=== PATIENT | female | born 1950 | race Caucasian/White ===

== ENCOUNTER → 2020-06-04 | Outpatient (CLI) | payer MEDICARE ==
--- NOTE | 2020-06-04 17:30 | BD ---
EXAMINATION TYPE: Axial Bone Density DATE OF EXAM: 06/04/2020 COMPARISON: NONE CLINICAL HISTORY: Height: 63 IN Weight: 149 LBS RISK FACTORS HISTORY OF: Surgery to Spine: YES L- SPINE SURGERY 2016 Active: YES Postmenopausal woman: AGE 46 MEDICATIONS: Osteoporosis Medications: NOT NOW Which medication: Fosamax How Long: TOOK FOR 2 YEARS. STOPPED 15+ YEARS AGO Additional Medications: CALCIUM, VIT D, CRESTOR, EXAM MEASUREMENTS: L-SPINE SURGERY 2016 Bone mineral density about the R hip (g/cm2): 0.890 Bone mineral density about the L hip (g/cm2): 0.884 T Score values are as follows: -----R Neck: -1.1 -----L Neck: -1.1 -----R Total: 0.4 -----L Total: 0.5 Bone mineral density BASELINE Bone mineral density about the L Wrist (g/cm2): 0.614 T Score values are as follows: -----Dist. R+U: -1.4 -----Prox. R+U: -0.6 -----Radius total: -1.0 Bone mineral density BASELINE IMPRESSION: Osteopenia (T Score between -2.5 and -1). There is slightly increased risk of fracture and the patient may be considered for treatment. Re-Screen 2-5 years. NOTE: T-SCORE=SD OF THE YOUNG ADULT MEAN.
--- NOTE | 2020-06-05 09:54 | MM ---
Reason for exam: screening (asymptomatic). Last mammogram was performed 1 year and 11 months ago. History: Patient is postmenopausal. Benign excisional biopsy of the right breast, July 21, 1999. Benign ultrasound-guided cyst aspiration, July 11, 1999. Physical Findings: A clinical breast exam by your physician is recommended on an annual basis and results should be correlated with mammographic findings. MG 3D Screening Mammo W/Cad Bilateral CC and MLO view(s) were taken. Prior study comparison: July 11, 2018, mammogram, performed at [place]. Focal asymmetry far posterior right breast centrally. This finding is changed when compared with previous exams. ASSESSMENT: Incomplete: need additional imaging evaluation, BI-RAD 0 RECOMMENDATION: Special view mammogram of the right breast. If lesion persists on supplemental views, image directed ultrasound is recommended. [facility] will attempt to contact patient to return for supplemental views and ultrasound if indicated.
== END | disposition home or self-care (01) ==
LOC: RADMAMWWP 07:40
PROVIDERS: ATTEND Internal Medicine Geriatric Medicine
DX: Z12.31 Encounter for screening mammogram for malignant neoplasm of breast (principal); M85.80 Other specified disorders of bone density and structure, unspecified site; M81.0 Age-related osteoporosis without current pathological fracture
CPT/HCPCS: 77063; 77067; 77080

== ENCOUNTER → 2020-06-10 | Outpatient (CLI) | payer MEDICARE ==
--- NOTE | 2020-06-10 09:32 | MM ---
Reason for exam: additional evaluation requested from abnormal screening. Last mammogram was performed less than 1 month ago. History: Patient is postmenopausal. Benign excisional biopsy of the right breast, July 21, 1999. Benign ultrasound-guided cyst aspiration, July 11, 1999. Physical Findings: Nurse did not find any significant physical abnormalities on exam. MG 3D Work Up W/Cad RT Spot compression CC, spot compression MLO, and LM view(s) were taken of the right breast. Prior study comparison: June 04, 2020, bilateral MG 3d screening mammo w/cad. July 11, 2018, mammogram, performed at [place]. The breast tissue is heterogeneously dense. This may lower the sensitivity of mammography. No persistent distortion. No significant new findings when compared with previous films. These results were verbally communicated with the patient and result sheet given to the patient on 06/10/20. ASSESSMENT: Probably benign, BI-RAD 3 RECOMMENDATION: Follow-up diagnostic mammogram of the right breast in 6 months.
== END | disposition home or self-care (01) ==
LOC: RADMAMWWP 08:03
PROVIDERS: ATTEND Internal Medicine Geriatric Medicine
DX: R92.8 Other abnormal and inconclusive findings on diagnostic imaging of breast (principal)
CPT/HCPCS: 77065; G0279; 77061

== ENCOUNTER → 2020-12-17 | Outpatient (CLI) | payer MEDICARE ==
--- NOTE | 2020-12-17 12:14 | MM ---
Reason for exam: screening (asymptomatic). Last mammogram was performed 6 months ago. History: Patient is postmenopausal. Benign excisional biopsy of the right breast, July 21, 1999. Benign ultrasound-guided cyst aspiration, July 11, 1999. Physical Findings: A clinical breast exam by your physician is recommended on an annual basis and results should be correlated with mammographic findings. MG 3D Diag Mammo W/Cad RT CC and MLO view(s) were taken of the right breast. Prior study comparison: June 10, 2020, right breast MG 3d work up w/cad RT. June 04, 2020, bilateral MG 3d screening mammo w/cad. The breast tissue is heterogeneously dense. This may lower the sensitivity of mammography. No significant new findings when compared with previous films. These results were verbally communicated with the patient and result sheet given to the patient on 12/17/20. ASSESSMENT: Benign, BI-RAD 2 RECOMMENDATION: Return to routine screening mammogram schedule for both breasts.
== END | disposition home or self-care (01) ==
LOC: RADMAMWWP 08:19
PROVIDERS: ATTEND Internal Medicine Geriatric Medicine
DX: R92.2 Inconclusive mammogram (principal)
CPT/HCPCS: 77065; G0279; 77061

== ENCOUNTER → 2021-06-26 | Outpatient (CLI) | payer MEDICARE ==
--- NOTE | 2021-06-27 11:20 | MM ---
Reason for exam: screening (asymptomatic). Last mammogram was performed 6 months ago. History: Patient is postmenopausal. Benign excisional biopsy of the right breast, July 21, 1999. Benign ultrasound-guided cyst aspiration, July 11, 1999. Took hormonal contraceptives for 2 years. Physical Findings: A clinical breast exam by your physician is recommended on an annual basis and results should be correlated with mammographic findings. MG 3D Screening Mammo W/Cad Bilateral CC and MLO view(s) were taken. Prior study comparison: June 04, 2020, bilateral MG 3d screening mammo w/cad. July 11, 2018, mammogram, performed at [place]. The breast tissue is heterogeneously dense. This may lower the sensitivity of mammography. There are benign appearing round calcifications bilaterally. There is no discrete abnormality. ASSESSMENT: Benign, BI-RAD 2 RECOMMENDATION: Routine screening mammogram of both breasts in 1 year.
== END | disposition home or self-care (01) ==
LOC: RADMAMWWP 11:35
PROVIDERS: ATTEND Internal Medicine Geriatric Medicine
DX: Z12.31 Encounter for screening mammogram for malignant neoplasm of breast (principal); Z78.0 Asymptomatic menopausal state
CPT/HCPCS: 77063; 77067

== ENCOUNTER → 2022-06-29 | Outpatient (CLI) | payer MEDICARE ==
--- NOTE | 2022-06-29 17:26 | MM ---
Reason for Exam: Screening (asymptomatic). Last screening mammogram was performed 12 month(s) ago. Patient History: Menarche at age 13. First Full-Term at age 28. Postmenopausal. Patient has history of breast feeding. Patient used Hormonal Contraceptives for 2 years. 07/21/1999, Benign Excisional Biopsy on the right side. Benign Ultrasound-Guided Cyst Aspiration. Risk Values: Elisabeth 5 year model risk: 2.3%. NCI Lifetime model risk: 6.3%. Prior Study Comparison: 06/10/2020 Right Diagnostic Mammogram, [facility]. 12/17/2020 Right Diagnostic Mammogram, [facility]. 06/26/2021 Bilateral Screening Mammogram, [facility]. Tissue Density: The breast tissue is heterogeneously dense. This may lower the sensitivity of mammography. Findings: Analyzed By CAD. There is no suspicious group of microcalcifications or new suspicious mass in either breast. Overall Assessment: Benign, BI-RAD 2 Management: Screening Mammogram of both breasts in 1 year. A clinical breast exam by your physician is recommended on an annual basis and results should be correlated with mammographic findings. Electronically signed and approved by: Aidan Mo M.D. Radiologis
== END ==
LOC: RADMAMWWP 07:29
PROVIDERS: ATTEND Internal Medicine Geriatric Medicine
DX: Z12.31 Encounter for screening mammogram for malignant neoplasm of breast (principal)
CPT/HCPCS: 77063; 77067

== ENCOUNTER 2023-01-05 02:28 | Emergency (ER) | payer MEDICARE ==
[2023-01-05 02:34] VITALS: RESP 18
[2023-01-05] MEDS ORDERED: PHENAZOPYRIDINE 100 MG TAB PO STA (02:47)
[2023-01-05 03:24] LABS: RBC,Urine >182 /hpf (0-5); WBC,Urine >182 /hpf (0-5)
[2023-01-05 03:26] LABS: Appearance,Urine Bloody (Clear); Color,Urine Dark Red
[2023-01-05] MEDS ORDERED: SULFAMETHOX-TMP 800-160MG 1 EACH TAB PO STA (04:02)
--- NOTE | 2023-01-05 04:04 | ED ---
Female Urogenital HPI - General Chief complaint: Urogenital Stated complaint: UTI, Hematuria Time Seen by Provider: 01/05/23 02:38 Source: patient, family Mode of arrival: ambulatory Limitations: no limitations - History of Present Illness Initial comments: This patient is a 72-year-old woman who presents with complaint of having urinary symptoms beginning tonight. The patient states that she initially was having symptoms of having to go frequently, burning dysuria, and urgency. Just prior to coming in she noticed that she was having hematuria as well. No systemic symptoms, no fever or chills, no chest pain, palpitations, dyspnea, diaphoresis or other symptoms. No back pain or abdominal pain. No rash MD Complaint: dysuria -: hour(s) Location: perineum Radiation: non-radiating Severity: moderate Quality: burning Consistency: intermittent Improves with: none Worsens with: urination - Related Data Previous Rx's Medication Instructions Recorded Phenazopyridine [Pyridium] 100 mg PO TID #6 tablet 01/05/23 Sulfamethox-Tmp 800-160Mg [Bactrim 1 each PO Q12HR #6 tab 01/05/23 Ds] Allergies Allergy/AdvReac Type Severity Reaction Status Date / Time tetracycline Allergy Rash/Hives Verified 01/05/23 02:35 Review of Systems ROS Statement: Those systems with pertinent positive or pertinent negative responses have been documented in the HPI. ROS Other: All systems not noted in ROS Statement are negative. Constitutional: Denies: fever, chills, weakness Respiratory: Denies: dyspnea Cardiovascular: Denies: chest pain, palpitations, edema Gastrointestinal: Denies: abdominal pain, vomiting Genitourinary: Reports: urgency, dysuria, frequency, hematuria Musculoskeletal: Denies: back pain Skin: Denies: rash Neurological: Denies: headache Hematological/Lymphatic: Denies: easy bleeding Past Medical History Past Medical History: Hyperlipidemia Additional Past Medical History / Comment(s): Menlisa Leease History of Any Multi-Drug Resistant Organisms: None Reported Past Surgical History: Orthopedic Surgery Past Psychological History: No Psychological Hx Reported Smoking Status: Never smoker Past Alcohol Use History: Occasional Past Drug Use History: None Reported General Exam Limitations: no limitations General appearance: alert, in no apparent distress Head exam: Present: atraumatic, normocephalic Eye exam: Present: normal appearance Neck exam: Present: normal inspection Respiratory exam: Present: normal lung sounds bilaterally. Absent: respiratory distress, wheezes, rales, rhonchi, stridor Cardiovascular Exam: Present: regular rate, normal rhythm, normal heart sounds. Absent: systolic murmur, diastolic murmur, rubs, gallop GI/Abdominal exam: Present: soft. Absent: distended, tenderness, guarding, rebound, rigid, mass Extremities exam: Present: normal inspection. Absent: pedal edema, calf tenderness Back exam: Absent: CVA tenderness (R), CVA tenderness (L) Neurological exam: Present: alert Skin exam: Present: warm, dry, intact, normal color. Absent: rash Course Vital Signs 01/05/23 01/05/23 02:29 04:19 Temperature 97.7 F 98.2 F Pulse Rate 74 75 Respiratory 18 18 Rate Blood Pressure 149/76 123/64 O2 Sat by Pulse 99 99 Oximetry Medical Decision Making - Medical Decision Making Patient is a 72-year-old woman with acute onset of urinary tract infection symptoms as well as hematuria. The patient does feel marked improvement after Pyridium. We discussed appropriate further care and follow-up, she is started on antibiotic as well. We discussed return parameters. Was pt. sent in by a medical professional or institution (, PA, DIRECTOR RECREATION, urgent care, hospital, or assisted...) When possible be specific @ -[No] Did you speak to anyone other than the patient for history (EMS, parent, family, police, friend...)? What history was obtained from this source @ -[No] Did you review nursing and triage notes (agree or disagree)? Why? @ -[I reviewed and agree with nursing and triage notes] Were old charts reviewed (outside hosp., previous admission, EMS record, old EKG, old radiological studies, urgent care reports/EKG's, assisted records)? Report findings @ -[No old charts were reviewed] Differential Diagnosis (chest pain, altered mental status, abdominal pain women, abdominal pain men, vaginal bleeding, weakness, fever, dyspnea, syncope, headache, dizziness, GI bleed, back pain, seizure, CVA, palpatations, mental health, musculoskeletal)? @ -[Differential Abdominal Pain Women: Appendicitis, Cholecystitis, diverticulosis, ischemic bowel, pancreatitis, hepatitis, UTI, gastroenteritis, AAA, incarcerated hernia, bowel obstruction, constipation, inflammatory bowel, hepatitis, peptic ulcer disease, splenic infarction, perforated viscus, vulvitis, ovarian torsion, PID, kidney stone, placenta abruption, this is not meant to be an all-inclusive list EKG interpreted by me (3pts min.). @ -[As above] X-rays interpreted by me (1pt min.). @ -[None done] CT interpreted by me (1pt min.). @ -[None done] U/S interpreted by me (1pt. min.). @ -[None done] What testing was considered but not performed or refused? (CT, X-rays, U/S, labs)? Why? @ -[None] What meds were considered but not given or refused? Why? @ -[None] Did you discuss the management of the patient with other professionals (professionals i.e. , PA, DIRECTOR RECREATION, lab, RT, psych nurse, family welfare social work professor, counter tender, teacher, medical information officer, lining caser)? Give summary @ -[No] Was smoking cessation discussed for >3mins.? @ -[No] Was critical care preformed (if so, how long)? @ -[No] Were there social determinants of health that impacted care today? How? (Homelessness, low income, unemployed, alcoholism, drug addiction, transportation, low edu. Level, literacy, decrease access to med. care, shelter, rehab)? @ -[No] Was there de-escalation of care discussed even if they declined (Discuss DNR or withdrawal of care, Hospice)? DNR status @ -[No] What co-morbidities impacted this encounter? (DM, HTN, Smoking, COPD, CAD, Cancer, CVA, ARF, Chemo, Hep., AIDS, mental health diagnosis, sleep apnea, morbid obesity)? @ -[None] Was patient admitted / discharged? Hospital course, mention meds given and route, prescriptions, significant lab abnormalities, going to OR and other pertinent info. @ -[Patient is discharged after starting antibiotics and Pyridium with close follow-up Undiagnosed new problem with uncertain prognosis? @ -[No] Drug Therapy requiring intensive monitoring for toxicity (Heparin, Nitro, Insulin, Cardizem)? @ -[No] Were any procedures done? @ -[No] Diagnosis/symptom? @ -[Acute hemorrhagic cystitis Acute, or Chronic, or Acute on Chronic? @ -[default] Uncomplicated (without systemic symptoms) or Complicated (systemic symptoms)? @ -[Uncomplicated Side effects of treatment? @ -[No] Exacerbation, Progression, or Severe Exacerbation? @ -[No] Poses a threat to life or bodily function? How? (Chest pain, [place], NH, pneumonia, PE, COPD, DKA, ARF, appy, cholecystitis, CVA, Diverticulitis, Homicidal, Suicidal, threat to staff... and all critical care pts) @ -[No] - Lab Data Lab Results 01/05/23 Range/Units 02:44 Urine Color Dark Red Urine Appearance Bloody H (Clear) Urine RBC >182 H (0-5) /hpf Urine WBC >182 H (0-5) /hpf Disposition Clinical Impression: Urinary tract infection Disposition: HOME SELF-CARE Condition: Good Instructions (If sedation given, give patient instructions): Urinary Tract Infection in Women (ED) Prescriptions: Sulfamethox-Tmp 800-160Mg [Bactrim Ds] 1 each PO Q12HR #6 tab Phenazopyridine [Pyridium] 100 mg PO TID #6 tablet Is patient prescribed a controlled substance at d/c from ED?: No Referrals: Melo Ventura MD [Primary Care Provider] - 1-2 days
[2023-01-05 04:21] VITALS: BP 123/64; PULSE 75; TEMP 98.2
== END 2023-01-05 04:21 | disposition home or self-care (01) ==
LOC: EC 02:28
DX: N39.0 Urinary tract infection, site not specified (principal); Z88.8 Allergy status to other drugs, medicaments and biological substances
CPT/HCPCS: 81001; 99283

== ENCOUNTER → 2023-08-09 | Outpatient (CLI) | payer MEDICARE ==
--- NOTE | 2023-08-10 19:01 | MM ---
Reason for Exam: Screening (asymptomatic). Last mammogram was performed 1 year(s) and 1 month(s) ago. Patient History: Menarche at age 13. First Full-Term at age 28. Postmenopausal. Patient has history of breast feeding. Patient used Hormonal Contraceptives for 2 years. 07/21/1999, Benign Excisional Biopsy on the right side. Benign Ultrasound-Guided Cyst Aspiration. Risk Values: Elisabeth 5 year model risk: 2.3%. NCI Lifetime model risk: 6.0%. Prior Study Comparison: 12/17/2020 Right Diagnostic Mammogram, [facility]. 06/26/2021 Bilateral Screening Mammogram, [facility]. 06/29/2022 Bilateral MG 3D screening mammo w/cad, [facility]. Tissue Density: The breast tissue is heterogeneously dense. This may lower the sensitivity of mammography. Findings: Analyzed By CAD. Heart appears symmetrical and stable. No significant interval change is evident. No suspicious groups of microcalcifications, spiculated or lobular masses, architectural distortion or other secondary signs of malignancy are mammographically apparent. Overall Assessment: Benign, BI-RAD 2 Management: Screening Mammogram of both breasts in 1 year. A negative mammogram report should not preclude additional follow up of suspicious palpable abnormalities. Patient should continue monthly self breast exam. A clinical breast exam by your physician is recommended on an annual basis and results should be correlated with mammographic findings. Electronically signed and approved by: Cesar Coe D.O. Radiologis
== END | disposition home or self-care (01) ==
LOC: RADMAMWWP 14:46
PROVIDERS: ATTEND Family Medicine
DX: Z12.31 Encounter for screening mammogram for malignant neoplasm of breast (principal); Z78.0 Asymptomatic menopausal state
CPT/HCPCS: 77063; 77067

== ENCOUNTER 2023-09-05 17:48 | Observation (INO) | payer MEDICARE ==
[2023-09-05 18:06] LABS: Glucose,Whole Blood 102 mg/dL (70-110)
[2023-09-05] MEDS ORDERED: SODIUM CHLORIDE 0.9% 1,000 ML IV ONE (18:13)
[2023-09-05 18:42] LABS: Basophils # (A) 0.1 k/uL (0-0.2); Basophils % (A) 1 %; Eosinophils # (A) 0.1 k/uL (0-0.7); Eosinophils % (A) 2 %; HCT 44.1 % (34.0-46.0); HGB 15.4 gm/dL (11.4-16.0); Lymphocytes # (A) 2.5 k/uL (1.0-4.8); Lymphocytes % (A) 31 %; MCH 32.2 pg (25.0-35.0); MCV 91.9 fL (80.0-100.0); Mean Platelet Volume 7.9; Monocytes # (A) 0.3 k/uL (0-1.0); Monocytes % (A) 4 %; Neutrophils % (A) 62 %; Platelet Count 168 k/uL (150-450); RDW 12.1 % (11.5-15.5)
--- NOTE | 2023-09-05 18:54 | XR ---
EXAMINATION TYPE: XR chest 2V DATE OF EXAM: 09/05/2023 COMPARISON: None HISTORY: 73-year-old female confusion, altered mental status TECHNIQUE: PA and lateral views FINDINGS: Heart normal size. Aorta and pulmonary vasculature within normal limits. Mild hyperinflation may rela te to a depth of inspiration or underlying emphysema. No consolidation or pleural effusion. IMPRESSION: No acute process seen.
--- NOTE | 2023-09-05 18:56 | CT ---
EXAMINATION TYPE: CT brain wo con DATE OF EXAM: 09/05/2023 COMPARISON: None HISTORY: 73-year-old female confusion, new onset AMS as of 3 hrs ago TECHNIQUE: Examination was done in axial plane without intravenous contrast. Coronal and sagittal r econstructions performed. CT DLP: 1145.6 mGycm Automated exposure control for dose reduction was used. FINDINGS: There is no evidence of acute intracranial hemorrhage, acute ischemic changes, mass, mass-effect, or extra-axial fluid collection. There is no effacement of cerebral sulci or basal subarachnoid cister ns. There is no hydrocephalus. There is no midline shift. Sung-white matter distinction is preserv ed. Atherosclerotic calcifications within the carotid siphons. Mild to moderate patchy white matter hypod ensities in both cerebral hemispheres. Trace mucosal thickening ethmoid air cells. Rightward nasal septal deviation. Orbits and globes are i ntact. Mastoid air cells well pneumatized. IMPRESSION: Mild to moderate patchy burden of chronic small vessel ischemic disease. No acute intracranial abnorm ality seen.
[2023-09-05 19:02] LABS: ALT 37 U/L (4-34); AST 35 U/L (14-36); Acetaminophen <10.0 ug/mL; African American GFR (CKD) >90 (>60 ml/min/1.73 sqM); Albumin 4.9 g/dL (3.5-5.0); Alcohol <10 mg/dL; Alkaline Phosphatase 55 U/L (38-126); Anion Gap 14 mmol/L; Blood Urea Nitrogen 24 mg/dL (7-17); Calcium 10.6 mg/dL (8.4-10.2); Carbon Dioxide 22 mmol/L (22-30); Chloride 99 mmol/L (98-107); Glucose 104 mg/dL (74-99); Non-African American GFR(CKD) 90 (>60 ml/min/1.73 sqM); Potassium 3.4 mmol/L (3.5-5.1); Salicylate <1.0 mg/dL; Sodium 135 mmol/L (137-145); Total Bilirubin 0.6 mg/dL (0.2-1.3); Total Protein 7.5 g/dL (6.3-8.2)
[2023-09-05 19:06] LABS: INR 0.9 (<1.2)
--- NOTE | 2023-09-05 19:08 | CT ---
EXAMINATION TYPE: CT angio head neck DATE OF EXAM: 09/05/2023 COMPARISON: CT brain same day HISTORY: 73-year-old female with confusion, new onset AMS as of 3 hrs ago TECHNIQUE: Contiguous axial scanning of the head and neck performed with IV Contrast, patient injecte d with 65ml mL of Isovue 370. Coronal and sagittal reconstructions performed. 3-D reconstructions gen erated on a dedicated independent workstation. CT DLP: 447.9 mGycm Automated exposure control for dose reduction was used. FINDINGS: Neck: Conventional arch vessel branching anatomy. The left vertebral artery is slightly more dominant. Both vertebral arteries are otherwise patent thr oughout the course. The right common and right internal carotid arteries are widely patent. The left common and left internal carotid arteries are widely patent. Moderate spondylotic change mid cervical spine resulting in moderate spinal canal stenoses at C4-C5 a nd C5-C6. Head: The left vertebral artery is slightly more dominant. However, both V4 segments of the vertebral arter ies and basilar artery as well appeared diminutive in caliber. There is persistent origin to the bilateral posterior cerebral arteries. Posterior circulation otherwise patent. Mild atherosclerotic scarring calcifications in the carotid siphons without significant narrowing. In ternal carotid arteries are patent as is the remainder of the anterior circulation. IMPRESSION: 1. NECK: WIDELY PATENT VERTEBRAL AND CAROTID ARTERIES OF THE NECK. NASCET CRITERIA IS UTILIZED. 2. HEAD: NO LARGE VESSEL INTRACRANIAL ARTERIAL OCCLUSION, SIGNIFICANT STENOSIS, OR ANEURYSMAL CHANGE IS SEEN. RELATIVELY DIMINUTIVE CALIBER TO THE VERTEBRAL AND BASILAR ARTERIES. CORRELATE FOR ANY CHRON IC SYMPTOMS OF VERTEBROBASILAR INSUFFICIENCY. PERSISTENT ORIGIN BILATERAL spa associate.
[2023-09-05 19:14] LABS: Partial Thromboplastin Time 21.6 sec (22.0-30.0)
[2023-09-05] MEDS ORDERED: NALOXONE 0.4 MG/ML 1 ML VIAL IV PRN (19:52)
[2023-09-05] MEDS ORDERED: ACETAMINOPHEN TAB 325 MG TAB PO PRN (19:52)
--- NOTE | 2023-09-05 19:57 | ED ---
General Adult HPI - General Chief complaint: Neuro Symptoms/Deficit Stated complaint: memory loss Time Seen by Provider: 09/05/23 18:01 Source: patient, family, RN notes reviewed, old records reviewed Mode of arrival: ambulatory Limitations: no limitations - History of Present Illness Initial comments: Patient is a 73-year-old female who presents to the emergency Department complaining of short-term memory loss. Started this afternoon. No history of this. Presents with family states the patient seems confused about what day it is, as well as what she recently performed. She baked pie for example this morning and did not recall doing so. Also was having a difficult time remembering that tomorrow is [place]. She is aware that is closed, is aware that is August and the year's 2022. Is oriented to person and place as well. Has no other deficits. Denies any trauma. Is not on blood thinners. Denies any headache, blurry vision, chest pain, abdominal pain, nausea, vomiting, diarrhea. Denies any cough or fevers. No other acute complaints at this time. Presents for further evaluation at this time. Unknown what is causing her sym ptoms. - Related Data Previous Rx's Medication Instructions Recorded Phenazopyridine [Pyridium] 100 mg PO TID #6 tablet 01/05/23 Sulfamethox-Tmp 800-160Mg [Bactrim 1 each PO Q12HR #6 tab 01/05/23 Ds] Allergies Allergy/AdvReac Type Severity Reaction Status Date / Time tetracycline Allergy Rash/Hives Verified 09/05/23 17:58 Review of Systems ROS Statement: Those systems with pertinent positive or pertinent negative responses have been documented in the HPI. Review of Systems: CONST: Denies fever EYES: Denies blurry vision ENT: Denies nasal congestion C/V: Denies Chest pain RESP: Denies shortness of breath GI: Denies abdominal pain : Denies dysuria SKIN: Denies rash. MSK: Denies joint pain. NEURO: Denies headache ROS Other: All systems not noted in ROS Statement are negative. Past Medical History Past Medical History: Hyperlipidemia Additional Past Medical History / Comment(s): Galindo De La Rosa. cyst on back of head History of Any Multi-Drug Resistant Organisms: None Reported Past Surgical History: Orthopedic Surgery Past Psychological History: No Psychological Hx Reported Smoking Status: Never smoker Past Alcohol Use History: Occasional Past Drug Use History: None Reported General Exam - General Exam Comments Initial Comments: General: Appears in no acute distress. HEAD: Normal with no signs of head trauma. EYES: PERRLA, EOMI, conjunctiva normal, no discharge. Pupils are 3 mm and equal bilaterally. ENT: Hearing grossly intact, normal oropharynx. RESPIRATORY: Clear breath sounds bilaterally. No wheezes, rales, or rhonchi. C/V: Regular rate and rhythm. S1 and S2 auscultated, no edema, peripheral pulses 2+ and intact throughout ABD: Abd is soft, nontender, nondistended EXT: Normal range of motion, no obvious deformity SKIN: No rashes or lesions observed on exposed skin. NEURO: Alert and oriented x 4. Cranial nerves II-XII intact. No focal sensory or strength deficits. NIH is 0. Cerebellar function is intact as evident by normal finger nose and heel to macias testing. She is able to ambulate without issue. Limitations: no limitations Course Vital Signs 09/05/23 09/05/23 09/05/23 17:53 19:09 20:00 Temperature 98 F Pulse Rate 79 75 84 Respiratory 18 18 18 Rate Blood Pressure 156/89 136/73 142/75 O2 Sat by Pulse 99 99 98 Oximetry Medical Decision Making - Medical Decision Making Was pt. sent in by a medical professional or institution ([facility], AGRICULTURAL SERVICE WORKER, urgent care, hospital, or half-way...) When possible be specific @ -No Did you speak to anyone other than the patient for history (EMS, parent, family, police, friend...)? What history was obtained from this source @ -Spoke with family members, who agreed to do with patient's recent memory issues. Did you review nursing and triage notes (agree or disagree)? Why? @ -I reviewed and agree with nursing and triage notes Were old charts reviewed (outside hosp., previous admission, EMS record, old EKG, old radiological studies, urgent care reports/EKG's, half-way records)? Report findings @ -Old charts reviewed Differential Diagnosis (chest pain, altered mental status, abdominal pain women, abdominal pain men, vaginal bleeding, weakness, fever, dyspnea, syncope, headache, dizziness, GI bleed, back pain, seizure, CVA, palpatations, mental health, musculoskeletal)? @ -Differential Altered Mental Status: Hypoglycemia, DKA, hypercapnia, ETOH, overdose, CO poisoning, trauma, myxedema coma, HTN encephalopathy, infection, encephalitis, psychosis, intercranial hemorrhage, hepatic encephalopathy, meningitis, CVA, this is not meant to be an all-inclusive list EKG interpreted by me (3pts min.). @ -As above X-rays interpreted by me (1pt min.). @ -Chest x-ray shows no obvious acute cardio pulmonary process. CT interpreted by me (1pt min.). @ -CT brain, CT angiogram of the head and neck revealed no obvious acute process. Chronic changes observed. U/S interpreted by me (1pt. min.). @ -None done What testing was considered but not performed or refused? (CT, X-rays, U/S, labs)? Why? @ -None What meds were considered but not given or refused? Why? @ -None Did you discuss the management of the patient with other professionals (professionals i.e. DrMarielle, PA, AGRICULTURAL SERVICE WORKER, lab, RT, psych nurse, socially responsible investment adviser, clerk television production, teacher, quarantine officer, telephonic case manager)? Give summary @ -I discussed with accepting physician, Dr. Henry of [facility] admits for Dr. Loyd. He was in agreement with the plan. Was smoking cessation discussed for >3mins.? @ -No Was critical care preformed (if so, how long)? @ -No Were there social determinants of health that impacted care today? How? (Homelessness, low income, unemployed, alcoholism, drug addiction, transportation, low edu. Level, literacy, decrease access to med. care, penitentiary, rehab)? @ -No Was there de-escalation of care discussed even if they declined (Discuss DNR or withdrawal of care, Hospice)? DNR status @ -No What co-morbidities impacted this encounter? (DM, HTN, Smoking, COPD, CAD, Cancer, CVA, ARF, Chemo, Hep., AIDS, mental health diagnosis, sleep apnea, morbid obesity)? @ -None Was patient admitted / discharged? Hospital course, mention meds given and route, prescriptions, significant lab abnormalities, going to OR and other pertinent info. @ -Based on patient's presentation physical exam, presents complaining of confusion. Has no obvious stroke symptoms at this time. He is alert and oriented 4 currently. He is slightly confused that tomorrow is [place]. Seems to be related to new her activities that she has to confusion regarding. No other symptoms. NIH is 0. Therefore patient is not made a code stroke. However we will obtain CT and CT of the brain in addition to altered mental status labs. Family and patient were in agreement this plan. Vital signs within acceptable limits. She will be given a 1 L fluid bolus. EKG showed no signs of acute ischemia. Patient's imaging is negative for any obvious acute process, and this includes intracranial imaging. Patient's troponin is undetectable. Mild hypokalemia at 3.4 which was replenished. Patient's urine returned possibly positive for a mild UTI. Culture was sent and patient was impaired clear to with a dose of IV Rocephin. Remainder the workup unremarkable. I did patient. Exam remains unchanged. She'll be admitted for neurology evaluation I will order an MRI. Family was in agreement this plan. I spoke the admitting physician, Dr. Henry who accepted the admission. Undiagnosed new problem with uncertain prognosis? @ -No Drug Therapy requiring intensive monitoring for toxicity (Heparin, Nitro, Ins ulin, Cardizem)? @ -No Were any procedures done? @ -No Diagnosis/symptom? @ -Altered mental status, short-term memory loss Acute, or Chronic, or Acute on Chronic? @ -Acute Uncomplicated (without systemic symptoms) or Complicated (systemic symptoms)? @ -Complicated Side effects of treatment? @ -No Exacerbation, Progression, or Severe Exacerbation? @ -No Poses a threat to life or bodily function? How? (Chest pain, USA, AL, pneumonia, PE, COPD, DKA, ARF, appy, cholecystitis, CVA, Diverticulitis, Homicidal, Suicidal, threat to staff... and all critical care pts) @ -Possibly, yes - Lab Data Result diagrams: 09/05/23 18:21 09/05/23 18:21 Lab Results 09/05/23 09/05/23 09/05/23 Range/Units 18:05 18:21 18:21 WBC 8.0 (3.8-10.6) k/uL RBC 4.80 (3.80-5.40) m/uL Hgb 15.4 (11.4-16.0) gm/dL Hct 44.1 (34.0-46.0) % MCV 91.9 (80.0-100.0) fL MCH 32.2 (25.0-35.0) pg MCHC 35.0 (31.0-37.0) g/dL RDW 12.1 (11.5-15.5) % Plt Count 168 (150-450) k/uL MPV 7.9 Neutrophils % 62 % Lymphocytes % 31 % Monocytes % 4 % Eosinophils % 2 % Basophils % 1 % Neutrophils # 5.0 (1.3-7.7) k/uL Lymphocytes # 2.5 (1.0-4.8) k/uL Monocytes # 0.3 (0-1.0) k/uL Eosinophils # 0.1 (0-0.7) k/uL Basophils # 0.1 (0-0.2) k/uL PT 10.0 (10.0-12.5) sec INR 0.9 (<1.2) APTT 21.6 L (22.0-30.0) sec Sodium (137-145) mmol/L Potassium (3.5-5.1) mmol/L Chloride (98-107) mmol/L Carbon Dioxide (22-30) mmol/L Anion Gap mmol/L BUN (7-17) mg/dL Creatinine (0.52-1.04) mg/dL Est GFR (CKD-EPI)AfAm (>60 ml/min/1.73 sqM) Est GFR (CKD-EPI)NonAf (>60 ml/min/1.73 sqM) Glucose (74-99) mg/dL POC Glucose (mg/dL) 102 (70-110) mg/dL POC Glu Valve Steamer KIMI ConradMelo Calcium (8.4-10.2) mg/dL Total Bilirubin (0.2-1.3) mg/dL AST (14-36) U/L ALT (4-34) U/L Alkaline Phosphatase (38-126) U/L Ammonia (<30) umol/L Troponin I (0.000-0.034) ng/mL Total Protein (6.3-8.2) g/dL Albumin (3.5-5.0) g/dL Urine Color Urine Appearance (Clear) Urine pH (5.0-8.0) Ur Specific Lamy (1.001-1.035) Urine Protein (Negative) Urine Glucose (UA) (Negative) Urine Ketones (Negative) Urine Blood (Negative) Urine Nitrite (Negative) Urine Bilirubin (Negative) Urine Urobilinogen (<2.0) mg/dL Ur Leukocyte Esterase (Negative) Urine RBC (0-5) /hpf Urine WBC (0-5) /hpf Ur Squamous Epith Cells (0-4) /hpf Salicylates mg/dL Acetaminophen ug/mL Ur Drug Screen Comment Serum Alcohol mg/dL Influenza Type A (PCR) (Not Detectd) Influenza Type B (PCR) (Not Detectd) RSV (PCR) (Not Detectd) SARS-CoV-2 (PCR) (Not Detectd) 09/05/23 09/05/23 09/05/23 Range/Units 18:21 18:21 18:21 WBC (3.8-10.6) k/uL RBC (3.80-5.40) m/uL Hgb (11.4-16.0) gm/dL Hct (34.0-46.0) % MCV (80.0-100.0) fL MCH (25.0-35.0) pg MCHC (31.0-37.0) g/dL RDW (11.5-15.5) % Plt Count (150-450) k/uL MPV Neutrophils % % Lymphocytes % % Monocytes % % Eosinophils % % Basophils % % Neutrophils # (1.3-7.7) k/uL Lymphocytes # (1.0-4.8) k/uL Monocytes # (0-1.0) k/uL Eosinophils # (0-0.7) k/uL Basophils # (0-0.2) k/uL PT (10.0-12.5) sec INR (<1.2) APTT (22.0-30.0) sec Sodium 135 L (137-145) mmol/L Potassium 3.4 L (3.5-5.1) mmol/L Chloride 99 (98-107) mmol/L Carbon Dioxide 22 (22-30) mmol/L Anion Gap 14 mmol/L BUN 24 H (7-17) mg/dL Creatinine 0.64 (0.52-1.04) mg/dL Est GFR (CKD-EPI)AfAm >90 (>60 ml/min/1.73 sqM) Est GFR (CKD-EPI)NonAf 90 (>60 ml/min/1.73 sqM) Glucose 104 H (74-99) mg/dL POC Glucose (mg/dL) (70-110) mg/dL POC Glu Valve Steamer ID Calcium 10.6 H (8.4-10.2) mg/dL Total Bilirubin 0.6 (0.2-1.3) mg/dL AST 35 (14-36) U/L ALT 37 H (4-34) U/L Alkaline Phosphatase 55 (38-126) U/L Ammonia <9 (<30) umol/L Troponin I (0.000-0.034) ng/mL Total Protein 7.5 (6.3-8.2) g/dL Albumin 4.9 (3.5-5.0) g/dL Urine Color Colorless Urine Appearance Clear (Clear) Urine pH 7.0 (5.0-8.0) Ur Specific Lamy 1.028 (1.001-1.035) Urine Protein Negative (Negative) Urine Glucose (UA) Negative (Negative) Urine Ketones 1+ H (Negative) Urine Blood Negative (Negative) Urine Nitrite Negative (Negative) Urine Bilirubin Negative (Negative) Urine Urobilinogen <2.0 (<2.0) mg/dL Ur Leukocyte Esterase Moderate H (Negative) Urine RBC 1 (0-5) /hpf Urine WBC 15 H (0-5) /hpf Ur Squamous Epith Cells <1 (0-4) /hpf Salicylates <1.0 mg/dL Acetaminophen <10.0 ug/mL Ur Drug Screen Comment SEE COMMENT Serum Alcohol <10 mg/dL Influenza Type A (PCR) (Not Detectd) Influenza Type B (PCR) (Not Detectd) RSV (PCR) (Not Detectd) SARS-CoV-2 (PCR) (Not Detectd) 09/05/23 09/05/23 Range/Units 18:21 18:21 WBC (3.8-10.6) k/uL RBC (3.80-5.40) m/uL Hgb (11.4-16.0) gm/dL Hct (34.0-46.0) % MCV (80.0-100.0) fL MCH (25.0-35.0) pg MCHC (31.0-37.0) g/dL RDW (11.5-15.5) % Plt Count (150-450) k/uL MPV Neutrophils % % Lymphocytes % % Monocytes % % Eosinophils % % Basophils % % Neutrophils # (1.3-7.7) k/uL Lymphocytes # (1.0-4.8) k/uL Monocytes # (0-1.0) k/uL Eosinophils # (0-0.7) k/uL Basophils # (0-0.2) k/uL PT (10.0-12.5) sec INR (<1.2) APTT (22.0-30.0) sec Sodium (137-145) mmol/L Potassium (3.5-5.1) mmol/L Chloride (98-107) mmol/L Carbon Dioxide (22-30) mmol/L Anion Gap mmol/L BUN (7-17) mg/dL Creatinine (0.52-1.04) mg/dL Est GFR (CKD-EPI)AfAm (>60 ml/min/1.73 sqM) Est GFR (CKD-EPI)NonAf (>60 ml/min/1.73 sqM) Glucose (74-99) mg/dL POC Glucose (mg/dL) (70-110) mg/dL POC Glu Valve Steamer ID Calcium (8.4-10.2) mg/dL Total Bilirubin (0.2-1.3) mg/dL AST (14-36) U/L ALT (4-34) U/L Alkaline Phosphatase (38-126) U/L Ammonia (<30) umol/L Troponin I <0.012 (0.000-0.034) ng/mL Total Protein (6.3-8.2) g/dL Albumin (3.5-5.0) g/dL Urine Color Urine Appearance (Clear) Urine pH (5.0-8.0) Ur Specific Lamy (1.001-1.035) Urine Protein (Negative) Urine Glucose (UA) (Negative) Urine Ketones (Negative) Urine Blood (Negative) Urine Nitrite (Negative) Urine Bilirubin (Negative) Urine Urobilinogen (<2.0) mg/dL Ur Leukocyte Esterase (Negative) Urine RBC (0-5) /hpf Urine WBC (0-5) /hpf Ur Squamous Epith Cells (0-4) /hpf Salicylates mg/dL Acetaminophen ug/mL Ur Drug Screen Comment Serum Alcohol mg/dL Influenza Type A (PCR) Not Detected (Not Detectd) Influenza Type B (PCR) Not Detected (Not Detectd) RSV (PCR) Not Detected (Not Detectd) SARS-CoV-2 (PCR) Not Detected (Not Detectd) - EKG Data -: EKG Interpreted by Me EKG Comments: 12-lead Electrocardiogram Interpretation Note EKG was reviewed and interpreted by myself. 12-lead ECG performed at 1825 is interpreted by me as revealing normal sinus rhythm at a rate of 78 beats per minute. Abell is normal. KS interval is 166 ms, QRS duration is 91 ms, QTc is 424 ms.. There were no ST or T wave abnormalities to suggest myocardial ischemia or injury. R wave progression across the precordium was satisfactory. By my interpretation this EKG is non-diagnostic for acute ischemia. Disposition Clinical Impression: Altered mental status, Short-term memory loss Disposition: ADMITTED IP TO THIS HOSP Condition: Stable Referrals: Carole Loyd MD [Primary Care Provider] - 1-2 days Time of Disposition: 19:25
[2023-09-05 20:02] LABS: Appearance,Urine Clear (Clear); Bilirubin,Urine Negative (Negative); Blood,Urine Negative (Negative); Color,Urine Colorless; Glucose,Urine (UA) Negative (Negative); Ketones,Urine 1+ (Negative); Leukocyte Esterase,Urine Moderate (Negative); Nitrite,Urine Negative (Negative); Protein,Urine Negative (Negative); RBC,Urine 1 /hpf (0-5); Specific Gravity,Urine 1.028 (1.001-1.035); Squamous Epithelial Cell,Urine <1 /hpf (0-4); Urobilinogen,Urine <2.0 mg/dL (<2.0); WBC,Urine 15 /hpf (0-5)
[2023-09-05 20:07] LABS: Amphetamine Screen,Urine Not Detected (NotDetected); Barbiturate Screen,Urine Not Detected (NotDetected); Benzodiazepines Screen,Urine Not Detected (NotDetected); Cocaine Screen,Urine Not Detected (NotDetected); Methadone Screen, Urine Not Detected (NotDetected); Opiate Screen,Urine Not Detected (NotDetected); Oxycodone Screen, Urine Not Detected (NotDetected); Phencyclidine Screen,Urine Not Detected (NotDetected); Tricyclic Antidepressant,Urine Not Detected (NotDetected); Urn Cannabinoid Scrn Not Detected (NotDetected)
--- NOTE | 2023-09-06 07:03 | P.HPIM ---
History of Present Illness H&P Date: 09/06/23 History of present illness; patient 73-year-old lady with past medical significa nt for hyperlipidemia presented to the ER for further short-term memory loss. Patient is accompanied by and sister. According to patient was all right yesterday afternoon when the family noticed that she was acting confused, patient had lost complete recollection of all the events that happened that particular day. Patient did not knew that she had baked pies the morning. Patient also was unaware tomorrow was [place]. It seemed as if somebody has completely wiped off that day from her memory. did not notice any loss of consciousness. did not notice any jerking movement of any extremity. There was no complain of any weakness of any extremity. No murmur facial droop or slurred speech. Whether the symptoms, patient was brought to the ER Initial lab work done in the ER showed WBC 8, hemoglobin 10.4, platelet count 168, sodium 135, potassium 3.4, chloride 99, carbonate 22, BUN 24, creatinine 0.64, glucose 104 AST 35, yearly 37, troponin 0.012 UA negative for any infection Influenza A not detected Influenza B not detected RSV not detected COVID-19 not detected Urine drug screen negative EKG done in the ER showed heart rate of 78, no ST segment elevation or depression seen, no T-wave inversions seen. Chest x-ray done in the ER CT head done showed no acute intracranial process. Mild to moderate patchy burden of chronic small vessel ischemic disease CTA head and neck done showed no significant stenosis, aneurysm or thrombus in the intracranial circulation Patient admitted to internal medicine service REVIEW OF SYSTEMS: CONSTITUTIONAL: No fever, no malaise, no fatigue. HEENT: No recent visual problems or hearing problems. Denied any sore throat. CARDIOVASCULAR: No chest pain, orthopnea, PND, no palpitations, no syncope. PULMONARY: No shortness of breath, no cough, no hemoptysis. GASTROINTESTINAL: No diarrhea, no nausea, no vomiting, no abdominal pain. NEUROLOGICAL: As mentioned above HEMATOLOGICAL: Denies any bleeding or petechiae. GENITOURINARY: Denies any burning micturition, frequency, or urgency. MUSCULOSKELETAL/RHEUMATOLOGICAL: Denies any joint pain, swelling, or any muscle pain. ENDOCRINE: Denies any polyuria or polydipsia. The rest of the 14-point review of systems is negative. PHYSICAL EXAMINATION: GENERAL: The patient is alert and oriented x3, not in any acute distress. Well developed, well nourished. HEENT: Pupils are round and equally reacting to light. EOMI. No scleral icterus. No conjunctival pallor. Normocephalic, atraumatic. No pharyngeal erythema. No thyromegaly. CARDIOVASCULAR: S1 and S2 present. No murmurs, rubs, or gallops. PULMONARY: Chest is clear to auscultation, no wheezing or crackles. ABDOMEN: Soft, nontender, nondistended, normoactive bowel sounds. No palpable organomegaly. MUSCULOSKELETAL: No joint swelling or deformity. EXTREMITIES: No cyanosis, clubbing, or pedal edema. NEUROLOGICAL: Gross neurological examination did not reveal any focal deficits. SKIN: No rashes. Assessment and plan Episode of confusion Short-term memory loss Hyperlipidemia Monitor vital signs Monitor CBC Monitor CMP Continue telemetry monitoring Continue neuro checks Ordered MRI brain Resume home meds Consult neurology Labs and medication were reviewed.. Continue same treatment. Continue with symptomatic treatment. Resume home medication. Monitor labs and vitals. DVT and GI prophylaxis. Further recommendations as per clinical course of the patient Dictation was produced using [employer] dictation software. please excuse any grammatical, word or spelling errors. Past Medical History Past Medical History: Hyperlipidemia Additional Past Medical History / Comment(s): Galindo De La Rosa. cyst on back of head History of Any Multi-Drug Resistant Organisms: None Reported Past Surgical History: Orthopedic Surgery Past Psychological History: No Psychological Hx Reported Smoking Status: Never smoker Past Alcohol Use History: Occasional Past Drug Use History: None Reported Medications and Allergies Home Medications Medication Instructions Recorded Confirmed Type Apple Cider Vinegar Chews 1 tab PO DAILY 09/05/23 09/05/23 History Calcium(Unknown Dose) 1 tab PO BID 09/05/23 09/05/23 History Cinnamon Bark [Cinnamon] 1,000 mg PO DAILY 09/05/23 09/05/23 History Co Q-10 100mg 100 mg PO HS 09/05/23 09/05/23 History Elderberry Chew 2 tab PO DAILY 09/05/23 09/05/23 History Ezetimibe [Zetia] 10 mg PO HS 09/05/23 09/05/23 History Fish Oil/Dha/Epa [Fish Oil 1,200 1 cap PO BID 09/05/23 09/05/23 History mg Fish Oil] Magnesium Oxide [Magnesium] 500 mg PO HS 09/05/23 09/05/23 History Mv-Min/Folic/Vit K/Lut/[id number] 1 tab PO DAILY 09/05/23 09/05/23 History [Alive Women's 50 Plus Tablet] Osteo Bi-Flex W/Turmeric 1 tab PO BID 09/05/23 09/05/23 History Psyllium Husk [Fiber Capsule] 2.8 gm PO BID 09/05/23 09/05/23 History Rosuvastatin Calcium 5 mg PO HS 09/05/23 09/05/23 History Allergies Allergy/AdvReac Type Severity Reaction Status Date / Time tetracycline Allergy Rash/Hives Verified 09/05/23 20:31 Physical Exam Vitals: Vital Signs Temp Pulse Resp BP Pulse Ox 09/06/23 06:00 66 18 123/62 96 09/06/23 02:10 66 16 110/65 97 09/05/23 20:00 84 18 142/75 98 09/05/23 19:09 75 18 136/73 99 09/05/23 17:53 97.1 F L 79 18 156/89 99 Intake and Output 09/05/23 09/05/23 09/06/23 14:59 22:59 06:59 Other: Weight 67 kg Results CBC & Chem 7: 09/05/23 18:21 09/05/23 18:21 Labs: Abnormal Lab Results - Last 24 Hours (Table) 09/05/23 09/05/23 09/05/23 Range/Units 18:21 18:21 18:21 APTT 21.6 L (22.0-30.0) sec Sodium 135 L (137-145) mmol/L Potassium 3.4 L (3.5-5.1) mmol/L BUN 24 H (7-17) mg/dL Glucose 104 H (74-99) mg/dL Calcium 10.6 H (8.4-10.2) mg/dL ALT 37 H (4-34) U/L Urine Ketones 1+ H (Negative) Ur Leukocyte Esterase Moderate H (Negative) Urine WBC 15 H (0-5) /hpf
[2023-09-06 09:12] LABS: Calcium 9.4 mg/dL (8.7-10.3); Carbon Dioxide 26.4 mmol/L (21.6-31.8); Chloride 102 mmol/L (96-109); Glucose 104 mg/dL (70-110); Potassium 3.5 mmol/L (3.5-5.5); Sodium 137 mmol/L (135-145)
[2023-09-06] MEDS: NON FORMULARY DRUG (Fish Oil/Dha/Epa [Fish Oil 1,200 Mg Fish Oil] 1 EACH Capsule) PO SCH ×2 (09:33→23:05)
[2023-09-06 09:52] LABS: Basophils # (A) 0.04 X 10*3/uL (0.00-0.10); Basophils % (A) 0.6 %; Eosinophils # (A) 0.08 X 10*3/uL (0.04-0.35); Eosinophils % (A) 1.2 %; HCT 38.4 % (37.2-46.3); HGB 13.1 g/dL (12.0-15.0); Lymphocytes # (A) 2.58 X 10*3/uL (0.90-5.00); Lymphocytes % (A) 37.8 %; MCHC 34.1 g/dL (32.0-37.0); MCV 90.8 FL (80.0-97.0); Mean Platelet Volume 10.5 FL (9.5-12.2); Monocytes # (A) 0.35 X 10*3/uL (0.20-1.00); Monocytes % (A) 5.1 %; NRBC Per 100 WBC 0 X 10*3/uL (0.00-0.01); Neutrophils # (A) 3.76 X 10*3/uL (1.80-7.70); Neutrophils % (A) 55.2 %; Platelet Count 165 X 10*3/uL (140-440); RBC 4.23 X 10*6/uL (4.10-5.20); RDW 11.9 % (11.5-14.5); WBC 6.82 X 10*3/uL (4.50-10.00)
[2023-09-06] MEDS ORDERED: ASPIRIN 81 MG PO STA (12:44)
--- NOTE | 2023-09-06 12:48 | P.CNNES ---
History of Present Illness Consult date: 09/06/23 Requesting physician: Patel Valdez Reason for Consult: ams, intermittent short term amnesia History of Present Illness: Patient is a 73-year-old right-handed female with history of hyperlipidemia, otherwise very healthy was brought to the hospital by family members, yesterday at 5:48 PM for episode of memory loss. Patient does not remember any details what happened yesterday on 09/05/2023. Patient does not remember much details the day prior on 09/04/2023 as well. She does remember that she got the pans out for making the pies, but does not remember making it yesterday on the . Family told her today that she did make 1 large and 4 small pies, but patient does not remember making them at all at this time. Patient states that her family noticed that she was acting confused, not aware, therefore they brought her to the ER. She does not remember how she got to the hospital and what happened throughout the day. Patient denies any slurred speech, facial droop, any visual disturbance, balance issues or any dizziness or vertigo or headache. She does have history of Mnire's disease. Vital signs on arrival blood pressure 156/89, came down to 136/73, pulse rate 79 and temperature 98.0. Blood test shows normal CBC, PT/PTT, sodium 135 potassium 3.4, BUN 24 creatinine 0.64. AST is 35, ALT 37, ammonia normal, troponin negative. UA negative. Urine drug screen negative. Blood alcohol level negative. Influenza screen, RSV and hopkins virus PCR negative. Chest x-ray showed no acute process. CT head revealed mild to moderate patchy burden of chronic small vessel ischemic disease. No acute intracranial process seen. I personally reviewed CT head, agree with the findings. EKG shows sinus rhythm. Patient has never smoked, drinks 1 glass or a cocktail of wine before dinner about 4 or 5 days in a week. She is not a heavy drinker. Patient denies any hypertension or diabetes. She does have hyperlipidemia. Also has history of Mnire's disease. Patient states that her dad of an aneurysm. Her mother about 7 days after a brain bleed in the posterior fossa. Patient says that she has been screened for aneurysm and was negative. Patient's home medications includes Crestor 5 mg, fish oil, Zetia 10 mg, magnesium. Patient do es not take any antiplatelet medication at home. Patient at present remembers what she ate for the breakfast including 2 piece of Pashto toast, scrambled egg and applesauce. She does not remember what she ate yesterday over she did much the day prior. Patient states that she lives with her . They have 2 doctors, but they live in [place]. Patient herself lives in [place] from 2009 until 2019 and then returned back. Review of Systems Constitutional: Denies chills, Denies fever Eyes: denies blurred vision, denies diplopia, denies pain Ears: bilateral: decreased hearing (Uses aids), tinnitus, deny: ear discharge Ears, nose, mouth and throat: Denies headache, Denies nasal congestion, Denies sore throat Cardiovascular: Denies chest pain, Denies shortness of breath Respiratory: Denies cough, Denies excessive sputum Gastrointestinal: Denies abdominal pain, Denies diarrhea, Denies nausea, Denies vomiting Genitourinary: Denies dysuria, Denies hematuria, Denies mixed incontinence, Denies urgency Musculoskeletal: Denies low back pain, Denies myalgias, Denies neck pain Integumentary: Denies pruritus, Denies rash Neurological: Reports as per HPI Psychiatric: Denies anxiety, Denies depression Endocrine: Denies fatigue, Denies weight change Hematologic/Lymphatic: Denies easy bleeding, Denies easy bruising Past Medical History Past Medical History: Hyperlipidemia Additional Past Medical History / Comment(s): Galindo De La Rosa. cyst on back of head History of Any Multi-Drug Resistant Organisms: None Reported Past Surgical History: Orthopedic Surgery Past Psychological History: No Psychological Hx Reported Smoking Status: Never smoker Past Alcohol Use History: Occasional Past Drug Use History: None Reported Medications and Allergies Home Medications Medication Instructions Recorded Confirmed Type Apple Cider Vinegar Chews 1 tab PO DAILY 09/05/23 09/05/23 History Calcium(Unknown Dose) 1 tab PO BID 09/05/23 09/05/23 History Cinnamon Bark [Cinnamon] 1,000 mg PO DAILY 09/05/23 09/05/23 History Co Q-10 100mg 100 mg PO HS 09/05/23 09/05/23 History Elderberry Chew 2 tab PO DAILY 09/05/23 09/05/23 History Ezetimibe [Zetia] 10 mg PO HS 09/05/23 09/05/23 History Fish Oil/Dha/Epa [Fish Oil 1,200 1 cap PO BID 09/05/23 09/05/23 History mg Fish Oil] Magnesium Oxide [Magnesium] 500 mg PO HS 09/05/23 09/05/23 History Mv-Min/Folic/Vit K/Lut/Yayr878 1 tab PO DAILY 09/05/23 09/05/23 History [Alive Women's 50 Plus Tablet] Osteo Bi-Flex W/Turmeric 1 tab PO BID 09/05/23 09/05/23 History Psyllium Husk [Fiber Capsule] 2.8 gm PO BID 09/05/23 09/05/23 History Rosuvastatin Calcium 5 mg PO HS 09/05/23 09/05/23 History Allergies Allergy/AdvReac Type Severity Reaction Status Date / Time tetracycline Allergy Rash/Hives Verified 09/05/23 20:31 Physical Examination - Vital Signs Vital Signs: Vital Signs Temp Pulse Resp BP Pulse Ox 09/06/23 09:54 60 16 145/78 98 09/06/23 08:00 74 16 116/56 94 L 09/06/23 06:00 66 18 123/62 96 09/06/23 02:10 66 16 110/65 97 09/05/23 20:00 84 18 142/75 98 09/05/23 19:09 75 18 136/73 99 09/05/23 17:53 97.1 F L 79 18 156/89 99 Intake and Output 09/05/23 09/06/23 09/06/23 22:59 06:59 14:59 Other: Weight 67 kg Patient is an elderly male, in no acute distress. Patient is alert awake oriented to time place and person. Patient knows it is 09/06/2023, winter season and that she is in [facility] in [place]. She knows name of the current president. She states she has to daughters, for grandchildren and one great-grandson. Speech and language functions are normal. Patient can name and repeat very well. No aphasia or dysarthria. Attention, concentration and fund of knowledge is adequate. On cranial nerve examination, pupils are equal, round and reacting to light, visual torres are full on confrontation, with no neglect on double simultaneous stimulation. Extraocular muscles are intact with no nystagmus. Face is symmetr ic, tongue protrudes to the midline. Palatal elevation and sensation normal, hearing and shoulder shrug normal, facial sensation normal. On muscle strength testing, there is no pronator drift and the strength is normal in arms and legs distally and proximally. Deep tendon reflexes are symmetric 1+ at the biceps, 1 brachioradialis, 1+ at the knees, 1+ ankles and plantars downgoing bilaterally. Sensory to touch is equal with no neglect on double simultaneous stimulation. Cerebellar function showed no ataxia for [id number] testing. No dysdiadochokinesia. No ataxia for [id number] testing on either side. Tone and bulk of muscles normal. Gait deferred.. On general examination, there is no carotid bruit or murmur, S1-S2 audible. Chest is clear on consultation. Abdomen is soft nontender. No organomegaly, bowel sounds present. Peripheral pulses are present. No peripheral edema. Results - Laboratory Findings CBC and BMP: 09/06/23 06:46 09/06/23 06:46 Abnormal Lab Findings: Abnormal Labs 09/05/23 09/05/23 09/05/23 18:21 18:21 18:21 APTT 21.6 L Sodium 135 L Potassium 3.4 L BUN 24 H Glucose 104 H Calcium 10.6 H ALT 37 H Urine Ketones 1+ H Ur Leukocyte Esterase Moderate H Urine WBC 15 H Assessment and Plan Assessment: * Transient global amnesia. Patient has loss of memory for almost 24 hours. Rule out stroke/TIA, seizure. * Hyperlipidemia * History of back surgery Plan: * MRI of the brain without contrast, evaluate for acute CVA * 2-D echo with bubble study to rule out PFO * CTA head and neck showed: Widely patent vertebral and carotid arteries of the neck. No large vessel intracranial arterial occlusion, significant stenosis or aneurysm. Relatively diminutive caliber to the vertebral and basilar arteries. Correlate for any chronic symptoms of vertebrobasilar insufficiency. 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 * Fasting a.m. lipid panel * Hemoglobin A1c * B12, folate * Optimize control of blood pressure. Blood pressure well controlled. * Start aspirin 324 mg stat 1 dose, followed by aspirin 81 mg daily. * Neuro checks every shift. * Telemetry monitoring rule out any arrhythmia * DVT prophylaxis: Patient ambulatory. * Neurology will continue to follow. Thank you for the consult.
[2023-09-06] MEDS ORDERED: EZETIMIBE 10 MG TAB PO SCH (21:00)
[2023-09-06] MEDS ORDERED: ATORVASTATIN 10 MG TAB PO SCH (21:00)
[2023-09-06] MEDS ORDERED: MAGNESIUM OXIDE 400 MG TAB PO SCH (21:00)
[2023-09-06 21:10] LABS: Glucose,Whole Blood 141 mg/dL (70-110)
[2023-09-07 08:16] VITALS: RESP 16
[2023-09-07] MEDS: NON FORMULARY DRUG (Fish Oil/Dha/Epa [Fish Oil 1,200 Mg Fish Oil] 1 EACH Capsule) PO SCH (08:16)
[2023-09-07] MEDS ORDERED: ASPIRIN 81 MG PO SCH (09:00)
[2023-09-07 09:18] LABS: Chol/HDL Ratio 3.22 Ratio; LDL Cholesterol,Calculated 73.8 mg/dL (0.0-131.0)
[2023-09-07 12:10] LABS: Glucose,Whole Blood 95 mg/dL (70-110)
--- NOTE | 2023-09-07 12:23 | MR ---
EXAMINATION TYPE: MR brain wo con DATE OF EXAM: 09/07/2023 11:53 AM CLINICAL INDICATION:Female, 73 years old with history of ams, intermittent short term amnesia; PHH, S hort term amnesia COMPARISON: 09/05/2023.. TECHNIQUE: Multi planar, multi sequence imaging was performed through the brain including: T1, T2, In version recovery, Diffusion weighted imaging, and gradient echo imaging. No gadolinium was given. FINDINGS: The glass-white junctions, ventricular system, basal cisterns appear unremarkable. Scattered foci of high T2 signal intensity are seen within the periventricular white matter. Midline structures show n o abnormality. Diffusion-weighted imaging shows no evidence of restricted diffusion. The susceptibili ty weighted images do not reveal any evidence for micro-hemorrhage. The bone marrow signal is within normal limits. Paranasal sinuses and mastoid air cells: No significant paranasal sinus disease. Visualized orbits: Orbital contents are intact. IMPRESSION: 1. No evidence of intracranial mass or acute/subacute infarct. 2. Nonspecific white matter changes, likely secondary to small vessel ischemic disease.
--- NOTE | 2023-09-07 13:01 | CA ---
Transthoracic Echo Report Name: Ashley Chandra Age: 73 Gender: F : 1950 Exam Date: 09/07/2023 10:55 Exam Location: [facility] Ht (in): 65 Wt (lb): 147 Ordering Physician: Radha Arevalo MD Attending/Referring Phys: Trade Mark Attorney Jameson Baez Procedure CPT: Indications: TGA Cardiac Hx: Technical Quality: Fair Contrast 1: Total Dose (mL): Contrast 2: Total Dose (mL): MEASUREMENTS (Male / Female) Normal Values 2D ECHO LV Diastolic Diameter PLAX 3.8 cm 4.2 - 5.9 / 3.9 - 5.3 cm LV Systolic Diameter PLAX 2.2 cm IVS Diastolic Thickness 1.0 cm 0.6 - 1.0 / 0.6 - 0.9 cm LVPW Diastolic Thickness 1.0 cm 0.6 - 1.0 / 0.6 - 0.9 cm LV Relative Wall Thickness 0.5 RV Internal Dim ED PLAX 3.2 cm LVOT Diameter 2.0 cm Aortic Root Diameter 2.7 cm LA Systolic Diameter LX 1.8 cm 3.0 - 4.0 / 2.7 - 3.8 cm LV Diastolic Volume MOD BP 43.6 cm??? 67 - 155 / 56 - 104 cm??? LV Systolic Volume MOD BP 13.3 cm??? 22 - 58 / 19 - 49 cm??? LV Ejection Fraction MOD BP 69.6 % >= 55 % LV Cardiac Index MOD BP 1068.4 cm???/min???m??? LV Diastolic Volume MOD 4C 51.7 cm??? LV Systolic Volume MOD 4C 11.8 cm??? LV Ejection Fraction MOD 4C 77.1 % LV Cardiac Index MOD 4C 1405.7 cm???/min???m??? LV Diastolic Length 4C 6.7 cm LV Systolic Length 4C 5.6 cm LV Diastolic Volume MOD 2C 34.9 cm??? LV Systolic Volume MOD 2C 14.9 cm??? LV Ejection Fraction MOD 2C 57.2 % LV Cardiac Index MOD 2C 704.3 cm???/min???m??? LV Diastolic Length 2C 7.1 cm LV Systolic Length 2C 5.6 cm LA Volume 25.5 cm??? 18 - 58 / 22 - 52 cm??? LA Volume Index 14.5 cm???/m??? 16 - 28 cm???/m??? DOPPLER AV Peak Velocity 137.1 cm/s AV Peak Gradient 7.5 mmHg LVOT Peak Velocity 106.2 cm/s LVOT Peak Gradient 4.5 mmHg LVOT Velocity Time Integral 22.2 cm LVOT Stroke Volume 72.8 cm??? LVOT Stroke Volume Index 42.0 ml/m??? LVOT Cardiac Index 2567.9 cm???/min???m??? AV Area Cont Eq pk 2.5 cm??? MV Peak Velocity 106.3 cm/s MV Peak Gradient 4.5 mmHg MV Mean Velocity 52.3 cm/s MV Mean Gradient 1.3 mmHg MV Velocity Time Integral 35.0 cm Mitral E Point Velocity 89.6 cm/s Mitral A Point Velocity 87.5 cm/s Mitral E to A Ratio 1.0 MV Deceleration Time 227.2 ms MV E' Velocity 6.7 cm/s Mitral E to MV E' Ratio 13.4 TR Peak Velocity 199.1 cm/s TR Peak Gradient 15.9 mmHg Right Ventricular Systolic Press 20.9 mmHg PV Peak Velocity 101.6 cm/s PV Peak Gradient 4.1 mmHg FINDINGS Left Ventricle Normal LV size and wall thickness. Left ventricular ejection fraction is estimated at _55-60 %. Right Ventricle Normal right ventricular size. Right Atrium Normal right atrial size. Left Atrium Normal left atrial size. Negative bubble study. Mitral Valve Structurally normal mitral valve. No mitral stenosis. No mitral regurgitation. Aortic Valve Trileaflet aortic valve. Mild AV calcification/sclerosis. No aortic valve stenosis or regurgitation. Tricuspid Valve Structurally normal tricuspid valve. Trace TR. Pulmonic Valve Pulmonic valve not well visualized. No pulmonic regurgitation. Pericardium Normal pericardium. Aorta Normal size aortic root. CONCLUSIONS Negative agitated saline study. Left ventricular ejection fraction 55-60% No mitral regurgitation Trace tricuspid regurg Previewed by: Dr. Marcelo Colon DO (Electronically Signed) Final Date: 07 September 2023 13:00
--- NOTE | 2023-09-07 13:19 | P.PN ---
Subjective Progress Note Date: 09/07/23 patient 73-year-old lady with past medical significant for hyperlipidemia presented to the ER for further short-term memory loss. Patient is accompanied by and sister. According to patient was all right yesterday afternoon when the family noticed that she was acting confused, patient had lost complete recollection of all the events that happened that particular day. Patient did not knew that she had baked pies the morning. Patient also was unaware tomorrow was [place]. It seemed as if somebody has completely wiped off that day from her memory. did not notice any loss of consciousness. did not notice any jerking movement of any extremity. There was no complain of any weakness of any extremity. No murmur facial droop or slurred speech. Whether the symptoms, patient was brought to the ER Initial lab work done in the ER showed WBC 8, hemoglobin 10.4, platelet count 168, sodium 135, potassium 3.4, chloride 99, carbonate 22, BUN 24, creatinine 0.64, glucose 104 AST 35, yearly 37, troponin 0.012 UA negative for any infection Influenza A not detected Influenza B not detected RSV not detected COVID-19 not detected Urine drug screen negative EKG done in the ER showed heart rate of 78, no ST segment elevation or depression seen, no T-wave inversions seen. Chest x-ray done in the ER CT head done showed no acute intracranial process. Mild to moderate patchy burden of chronic small vessel ischemic disease CTA head and neck done showed no significant stenosis, aneurysm or thrombus in the intracranial circulation Patient admitted to internal medicine service 09/07. Patient seen and examined. Denies any lightheadedness. States she is f eeling much better. REVIEW OF SYSTEMS: CONSTITUTIONAL: No fever, no malaise,. CARDIOVASCULAR: No chest pain, no palpitations, no syncope. PULMONARY: No shortness of breath, no cough, GASTROINTESTINAL: No diarrhea, no nausea, no vomiting, no abdominal pain. NEUROLOGICAL: No headaches, no weakness, PHYSICAL EXAMINATION: GENERAL: The patient is alert and oriented x3, not in any acute distress. Well developed, well nourished. HEENT: Pupils are round and equally reacting to light. EOMI. No scleral icterus. No conjunctival pallor. Normocephalic, atraumatic. No pharyngeal erythema. No thyromegaly. CARDIOVASCULAR: S1 and S2 present. No murmurs, rubs, or gallops. PULMONARY: Chest is clear to auscultation, no wheezing or crackles. ABDOMEN: Soft, nontender, nondistended, normoactive bowel sounds. No palpable organomegaly. MUSCULOSKELETAL: No joint swelling or deformity. EXTREMITIES: No cyanosis, clubbing, or pedal edema. NEUROLOGICAL: Gross neurological examination did not reveal any focal deficits. SKIN: No rashes. Assessment and plan Episode of confusion Transient global amnesia Hyperlipidemia Monitor vital signs Monitor CBC Monitor CMP Continue telemetry monitoring Continue neuro checks Ordered MRI brain Ordered 2-D echo Ordered EEG Neurology following Labs and medication were reviewed.. Continue same treatment. Continue with symptomatic treatment. Resume home medication. Monitor labs and vitals. DVT and GI prophylaxis. Further recommendations as per clinical course of the patient Dictation was produced using Veenome dictation software. please excuse any grammatical, word or spelling errors. Objective - Vital Signs Vital signs: Vital Signs Temp 98.1 F 09/07/23 08:00 Pulse 55 L 09/07/23 08:00 Resp 16 09/07/23 08:00 BP 108/69 09/07/23 08:00 Pulse Ox 95 09/07/23 08:00 FiO2 Intake & Output 09/06/23 09/07/23 09/07/23 18:59 06:59 18:59 Weight 67 kg Other: # Voids 4 - Labs CBC & Chem 7: 09/06/23 06:46 09/06/23 06:46 Labs: Abnormal Lab Results - Last 24 Hours (Table) 09/06/23 09/06/23 09/07/23 Range/Units 14:00 21:08 05:47 POC Glucose (mg/dL) 141 H (70-110) mg/dL Hemoglobin A1c 6.1 H (<=6.0) % Triglycerides 165.00 H (0.00-149.00) mg/dL Microbiology - Last 24 Hours (Table) 09/05/23 18:51 Urine Culture - Final Urine,Clean Catch
[2023-09-07 14:37] VITALS: BP 115/69; PULSE 70; TEMP 98.6
[2023-09-07 16:15] LABS: Glucose,Whole Blood 116 mg/dL (70-110)
--- NOTE | 2023-09-07 22:19 | EEG ---
DATE OF SERVICE: 09/07/2023 ELECTROENCEPHALOGRAM REPORT PREAMBLE: This is a 73-year-old female, presented with transient global amnesia. EEG FINDINGS: This is a 21-channel digital EEG recorded with video component, utilizing 10/20 international system with referential and bipolar montages. Background consists of well developed, well regulated moderate voltage activity in 9 hertz alpha. Background is posterior dominant and reactive to eye opening and closing. Photic driving response was seen with some flash frequencies. Drowsiness was seen with appearance of bilaterally symmetric theta frequency rhythm. Deeper stages of sleep were not seen. Some occasional dysrhythmic theta activity was seen in the left more than right temporal region. At times, it was sharply contoured. No definitive focal or generalized epileptiform activity was seen. EKG channel showed no arrhythmia. IMPRESSION: This is a mildly abnormal EEG, due to intermittent bitemporal dysrhythmic theta activity seen, left more than right, suggestive of focal cortical neuronal dysfunction. No definitive epileptiform activity was seen. If your suspicion for seizures is high, suggest prolonged, sleep-deprived EEG. MMODL / IJN: [id number] / SUKHI
--- NOTE | 2023-09-08 00:39 | P.PN ---
Subjective Progress Note Date: 09/07/23 Patient was seen for a follow-up. Patient's was also present today. Offers no new complaints. Patient states that her memory is coming back. She does remember preparing the apple pie on the . She remembers what she ate for breakfast today. Telemetry monitoring showing sinus rhythm, sinus bradycardia in the 50s. Objective - Vital Signs Vital signs: Vital Signs Temp 98.6 F 09/07/23 14:00 Pulse 70 09/07/23 14:00 Resp 16 09/07/23 14:00 BP 115/69 09/07/23 14:00 Pulse Ox 98 09/07/23 14:00 FiO2 Intake & Output 09/06/23 09/07/23 09/07/23 18:59 06:59 18:59 Intake Total 440 Balance 440 Weight 67 kg Intake: Oral 440 Other: # Voids 4 - Exam Normal. - Labs CBC & Chem 7: 09/06/23 06:46 09/06/23 06:46 Labs: Abnormal Lab Results - Last 24 Hours (Table) 09/06/23 09/06/23 09/07/23 Range/Units 14:00 21:08 05:47 POC Glucose (mg/dL) 141 H (70-110) mg/dL Hemoglobin A1c 6.1 H (<=6.0) % Triglycerides 165.00 H (0.00-149.00) mg/dL Microbiology - Last 24 Hours (Table) 09/05/23 18:51 Urine Culture - Final Urine,Clean Catch Assessment and Plan Assessment: * Transient global amnesia. Patient has loss of memory for almost 24 hours. Rule out stroke/TIA, seizure. * Hyperlipidemia * Prediabetes, with A1c 6.1 * History of back surgery Plan: * MRI of the brain without contrast revealed no evidence of intracranial mass or acute/subacute infarct. Nonspecific white matter changes, likely secondary to small vessel ischemic disease. I personally reviewed MRI, I agree with the findings. * 2-D echo revealed normal left-ventricular EF 55-60%. No MR. Negative agitated saline study. Normal left atrial size. No embolic source. * EEG was mildly abnormal EEG due to intermittent bitemporal dysrhythmic theta activity seen, left more than right, suggestive of focal cortical neuronal dysfunction. No definitive epileptiform activity was seen. If your suspicion for seizure is high, suggest prolonged, sleep deprived EEG. * CTA head and neck showed: Widely patent vertebral and carotid arteries of the neck. No large vessel intracranial arterial occlusion, significant stenosis or aneurysm. Relatively diminutive caliber to the vertebral and basilar arteries. Correlate for any chronic symptoms of vertebrobasilar insufficiency. 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 * Fasting a.m. lipid panel cholesterol 155, LDL 73, HDL 48, triglycerides 165. Continue Crestor 5 mg and Zetia 10 mg. * Hemoglobin A1c 6.1. Suggest healthy lifestyles, follow-up A1c in 6 months. * B12 765, folate 21.6, TSH 1.35, all normal. * Optimize control of blood pressure. Blood pressure well controlled. * Start aspirin 324 mg stat 1 dose, followed by aspirin 81 mg daily. Continue aspirin indefinitely. * Telemetry monitoring showing sinus rhythm with sinus bradycardia in the 50s. * Recommend no driving for 6 months as per [place] state law. However patient was recommended to follow up with the neurologist outpatient. She may need a repeat, perhaps prolonged EEG as an outpatient. No indication for antiepileptic medication at this time, as the event is of uncertain cause. Patient's UA was slightly abnormal, but the cultures are negative, therefore probably not a cause of her encephalopathy. * Neurologically clear for discharge.
--- NOTE | 2023-09-09 09:33 | P.DS ---
Providers Date of admission: 09/05/23 19:54 Expected date of discharge: 09/07/23 Attending physician: Wilner Henry MD Consults: 09/05/23 19:52 Consult Physician Routine Consulting Provider: Radha Arevalo Consult Reason/Comments: ams, intermittent short term amnesia Do you want consulting provider notified?: Yes [facility]: Discharge diagnoses; Episode of confusion Transient global amnesia Hyperlipidemia Hospital course; patient 73-year-old lady with past medical significant for hyperlipidemia presented to the ER for further short-term memory loss. Patient is accompanied by and sister. According to patient was all right yesterday afternoon when the family noticed that she was acting confused, patient had lost complete recollection of all the events that happened that particular day. Patient did not knew that she had baked pies the morning. Patient also was unaware tomorrow was [place]. It seemed as if somebody has completely wiped off that day from her memory. did not notice any loss of consciousness. did not notice any jerking movement of any extremity. There was no complain of any weakness of any extremity. No murmur facial droop or slurred speech. Whether the symptoms, patient was brought to the ER Initial lab work done in the ER showed WBC 8, hemoglobin 10.4, platelet count 168, sodium 135, potassium 3.4, chloride 99, carbonate 22, BUN 24, creatinine 0.64, glucose 104 AST 35, yearly 37, troponin 0.012 UA negative for any infection Influenza A not detected Influenza B not detected RSV not detected COVID-19 not detected Urine drug screen negative EKG done in the ER showed heart rate of 78, no ST segment elevation or depression seen, no T-wave inversions seen. Chest x-ray done in the ER CT head done showed no acute intracranial process. Mild to moderate patchy burden of chronic small vessel ischemic disease CTA head and neck done showed no significant stenosis, aneurysm or thrombus in the intracranial circulation Patient admitted to internal medicine service 09/07. Patient seen and examined. Denies any lightheadedness. States she is feeling much better. MRI brain done showed no evidence of intracranial mass or acute/subacute infarct EGD done showed intermittent bitemporal dysrhythmic theta,activity seen. No evidence of epileptiform activity Neurology reviewed EEG, recommend no anti-seizure medication at this time, recommend outpatient neurology follow-up. Neurology cleared the patient for discharge PHYSICAL EXAMINATION: GENERAL: The patient is alert and oriented x3, not in any acute distress. Well developed, well nourished. HEENT: Pupils are round and equally reacting to light. EOMI. No scleral icterus. No conjunctival pallor. Normocephalic, atraumatic. No pharyngeal erythema. No thyromegaly. CARDIOVASCULAR: S1 and S2 present. No murmurs, rubs, or gallops. PULMONARY: Chest is clear to auscultation, no wheezing or crackles. ABDOMEN: Soft, nontender, nondistended, normoactive bowel sounds. No palpable organomegaly. MUSCULOSKELETAL: No joint swelling or deformity. EXTREMITIES: No cyanosis, clubbing, or pedal edema. NEUROLOGICAL: Gross neurological examination did not reveal any focal deficits. SKIN: No rashes. Dictation was produced using [employer] dictation software. please excuse any grammatical, word or spelling errors. Patient Condition at Discharge: Stable Plan - Discharge Summary New Discharge Prescriptions: New Aspirin 81 mg PO DAILY #30 tab Acetaminophen Tab [Tylenol] 650 mg PO Q6HR PRN tab PRN Reason: Mild Pain Or Fever > 100.5 Continue Rosuvastatin Calcium 5 mg PO HS Co Q-10 100mg 100 mg PO HS Cinnamon Bark [Cinnamon] 1,000 mg PO DAILY Fish Oil/Dha/Epa [Fish Oil 1,200 mg Fish Oil] 1 cap PO BID Psyllium Husk [Fiber Capsule] 2.8 gm PO BID Mv-Min/Folic/Vit K/Lut/[id number] [Alive Women's 50 Plus Tablet] 1 tab PO DAILY Apple Cider Vinegar Chews 1 tab PO DAILY Ezetimibe [Zetia] 10 mg PO HS Calcium(Unknown Dose) 1 tab PO BID Magnesium Oxide [Magnesium] 500 mg PO HS Osteo Bi-Flex W/Turmeric 1 tab PO BID Elderberry Chew 2 tab PO DAILY Discharge Medication List Apple Cider Vinegar Chews 1 tab PO DAILY 09/05/23 [History] Calcium(Unknown Dose) 1 tab PO BID 09/05/23 [History] Cinnamon Bark [Cinnamon] 1,000 mg PO DAILY 09/05/23 [History] Co Q-10 100mg 100 mg PO HS 09/05/23 [History] Elderberry Chew 2 tab PO DAILY 09/05/23 [History] Ezetimibe [Zetia] 10 mg PO HS 09/05/23 [History] Fish Oil/Dha/Epa [Fish Oil 1,200 mg Fish Oil] 1 cap PO BID 09/05/23 [History] Magnesium Oxide [Magnesium] 500 mg PO HS 09/05/23 [History] Mv-Min/Folic/Vit K/Lut/[id number] [Alive Women's 50 Plus Tablet] 1 tab PO DAILY 09/05/23 [History] Osteo Bi-Flex W/Turmeric 1 tab PO BID 09/05/23 [History] Psyllium Husk [Fiber Capsule] 2.8 gm PO BID 09/05/23 [History] Rosuvastatin Calcium 5 mg PO HS 09/05/23 [History] Acetaminophen Tab [Tylenol] 650 mg PO Q6HR PRN tab 09/07/23 [Rx] Aspirin 81 mg PO DAILY #30 tab 09/07/23 [Rx] Follow up Appointment(s)/Referral(s): Carole Loyd MD [Primary Care Provider] - 1-2 days Kristopher De Anda MD [STAFF PHYSICIAN] - 1 Week Patient Instructions/Handouts: Altered Mental Status (GEN) Discharge Disposition: HOME SELF-CARE
== END 2023-09-07 18:02 | disposition home or self-care (01) ==
LOC: EC 17:48 → INTOOBSV 19:54 → 4SSUR 19:54 → UNDODISIN 09-07 18:02
PROVIDERS: ADMIT Internal Medicine; ATTEND Internal Medicine
DX: G45.4 Transient global amnesia (principal); E87.6 Hypokalemia; R73.03 Prediabetes; R94.01 Abnormal electroencephalogram [EEG]; E78.5 Hyperlipidemia, unspecified; H81.09 Meniere's disease, unspecified ear; R00.1 Bradycardia, unspecified; Z11.52 Encounter for screening for COVID-19; Z11.59 Encounter for screening for other viral diseases; Z79.899 Other long term (current) drug therapy; Z88.1 Allergy status to other antibiotic agents; Z98.890 Other specified postprocedural states; Z82.49 Family history of ischemic heart disease and other diseases of the circulatory system
CPT/HCPCS: 96361; 96365; 99285; 36415; 95816; 93005; 93306; 80061; 80053; 80048; 84443; 82607; 82140; 82746; 84484; 85025 ×2; 85610; 85730; 81001; 80306; 80143; 87086; 83036; 87636; 80179; 71046; 70496; 70450; 70498; 70551; G0378 ×3; G0480; J0696; Q9967; 80320; 96374; 99291

== ENCOUNTER → 2024-09-25 | Outpatient (CLI) | payer MEDICARE ==
--- NOTE | 2024-09-25 11:29 | BD ---
EXAMINATION TYPE: Axial Bone Density DATE OF EXAM: 09/25/2024 CLINICAL HISTORY: 74 years old Female. ICD-10 CODE: M81.0AGE-RELATED OSTEO , Additional History: Height: 63.5 Weight: 145 Comparison: Prior DEXA bone scan 2019 FRAX RISK QUESTIONS: Family History (Parent hip fracture): no History of Fracture in Adulthood: no Secondary Osteoporosis: no RISK FACTORS HISTORY OF: Surgery to L-Spine: yes When: 2017 MEDICATIONS: Thyroid Medications: no Osteoporosis Medications: no EXAM MEASUREMENTS: Bone mineral densitometry was performed using the [employer] System. Bone mineral density about the R hip (g/cm2): 1.049 Bone mineral density about the L hip (g/cm2): 1.046 T Score values are as follows: -----R Neck: -1.4 -----L Neck: -1.8 -----R Total: 0.3 -----L Total: 0.3 Z Score values are as follows: -----R Neck: 0.4 -----L Neck: 0.0 -----R Total: 1.9 -----L Total: 1.9 Bone mineral density has: Decreased -1.7% since study of: 06/04/2020 Bone mineral density about the L Wrist (g/cm2): 0.605 T Score values are as follows: -----Dist. R+U: -1.7 -----Prox. R+U: -0.5 -----Radius total: -1.1 Z Score values are as follows: -----Dist. R+U: 0.5 -----Prox. R+U: 1.6 -----Radius total: 1.0 Bone mineral density has: Increased 1.1% since study of: 06/04/2020 FRAX%s: The graph provided illustrates a 12.1% chance for a major osteoporotic fx and a 2.6% chance f or the hips probability for fx in 10 years time. IMPRESSION: Osteopenia (T Score between -2.5 and -1) remains present. There is slightly increased risk of fracture and the patient may be considered for treatment. Re-Screen 2-5 years. NOTE: T-SCORE=SD OF THE YOUNG ADULT MEAN. [facility], , 09/25/2024 11:27 AM
--- NOTE | 2024-09-25 11:57 | MM ---
Reason for Exam: Screening (asymptomatic). Last mammogram was performed 1 year(s) and 2 month(s) ago. Patient History: Menarche at age 13. First Full-Term at age 28. Postmenopausal. Patient has history of breast feeding. Patient used Hormonal Contraceptives for 2 years. 07/21/1999, Benign Excisional Biopsy on the right side. Benign Ultrasound-Guided Cyst Aspiration. Risk Values: Elisabeth 5 year model risk: 2.3%. NCI Lifetime model risk: 5.7%. Prior Study Comparison: 06/26/2021 Bilateral Screening Mammogram, [facility]. 06/29/2022 Bilateral MG 3D screening mammo w/cad, [facility]. 08/09/2023 Bilateral MG 3D screening mammo w/cad, [facility]. Tissue Density: The breasts are heterogeneously dense, which may obscure small masses. Analyzed By CAD. Overall Assessment: Benign, BI-RAD 2 Management: Screening Mammogram of both breasts in 1 year. Electronically signed and approved by: Benny Harrison M.D.
== END | disposition home or self-care (01) ==
LOC: RADMAMWWP 08:03
PROVIDERS: ATTEND Internal Medicine Geriatric Medicine
DX: Z12.31 Encounter for screening mammogram for malignant neoplasm of breast (principal); M81.0 Age-related osteoporosis without current pathological fracture; Z78.0 Asymptomatic menopausal state; R92.333 Mammographic heterogeneous density, bilateral breasts; M85.89 Other specified disorders of bone density and structure, multiple sites
CPT/HCPCS: 77063; 77067; 77080